=== PATIENT | female | born 1935 | race Caucasian/White ===

== ENCOUNTER 2018-09-22 17:56 | Inpatient (IN) | payer OTHER ==
[~2018-09-22] VITALS: Ht 170.2 cm; Wt 66.8 kg
[2018-09-22 18:44] LABS: Eosinophils # (auto) 0.2 uL; Monocytes # (auto) 0.6 uL; Platelet Count (auto) 175 10^3/uL (140-450)
[2018-09-22 18:46] LABS: Basophils # (auto) 0.1 uL; Basophils % (auto) 1.5 % (0.0-2.0); Eosinophils % (auto) 4.8 % (0.0-7.0); Hematocrit 32.8 % (36.0-46.0); Hemoglobin 10.8 g/dL (12.2-16.2); Lymphocytes # (auto) 0.9 uL; Lymphocytes % (auto) 19.3 % (10.0-50.0); Mean Corpuscular Hemoglobin 34.6 pg (28.0-32.0); Mean Corpuscular Volume 104.8 fL (80.0-100.0); Monocytes % (auto) 12.4 % (0.0-12.0); Red Blood Cells 3.13 10^6/uL (4.0-5.20); Red Cell Distribution Width 19.6 % (11.8-14.3); White Blood Cell 4.9 10^3/uL (4.4-10.8)
[2018-09-22 18:57] LABS: Albumin 3.7 g/dL (3.4-5.0); Calcium 8.7 mg/dL (8.5-10.1); Magnesium 2.2 mg/dL (1.6-2.6); Potassium 3.8 mmol/L (3.5-5.1)
[2018-09-22 19:03] LABS: BUN/Creatinine Ratio 20.2; Bilirubin, Total 2.9 mg/dL (0.2-1.0); Total Protein 6.8 g/dL (6.4-8.2)
[2018-09-22] MEDS ORDERED: SODIUM CHLORIDE 0.9% 1,000 ML IV ONE (19:15)
[2018-09-22 22:28] LABS: Urine Amorphous Crystal FEW /hpf (None Seen); Urine Bacteria FEW /hpf (None Seen); Urine Blood 1+ /uL (Negative); Urine Mucus FEW (None Seen); Urine Specific Gravity 1.015 (1.001-1.035); Urine WBC <1 /hpf (0 - 5)
[2018-09-22] MEDS ORDERED: DOCUSATE SOD 100 MG CAP PO PRN (22:45)
[2018-09-22] MEDS ORDERED: ONDANSETRON HCL 4 MG/2 ML VIAL IV PRN (22:45)
[2018-09-22] MEDS ORDERED: HYDROcodone-ACET 5/325MG TAB PO PRN (22:45)
[2018-09-22] MEDS ORDERED: ACETAMINOPHEN 325 MG TAB PO PRN (22:45)
[2018-09-22] MEDS ORDERED: LACTULOSE 20Gm/30ML SOLN PO ONE (23:15)
[2018-09-22 23:50] VITALS: BP 150/69
--- NOTE | 2018-09-22 23:55 | NUR ---
MS admit from ER MISHA,GUNNER Rivera admitted to tele/MS after SBAR received. Patient oriented to Twila Morris RN primary RN, unit, room, bed, and unit policies regarding patient care and visiting hours. Patient weighed by bedscale and encouraged to call if they need something. All questions and concerns addressed, patient verbalized understanding. Bed is in lowest locked posoition with bed rails up x2 and call light is within reach of the patient. Bed alarm is armed.
--- NOTE | 2018-09-23 01:20 | NUR ---
Wound pictures taken, to place would consult. Addendum: 09/23/18 at 0120 by Twila Morris RN RN Spelling error: Meant Wound consult.
--- NOTE | 2018-09-23 01:39 | NUR ---
Unable to Reconcile medications at this time: Patients family member called to bring medication list today to complete medication reconciliation. Will notify the day nurse.
[2018-09-23 04:30] VITALS: BP 112/57
[2018-09-23 05:52] LABS: Basophils # (auto) 0 uL; Basophils % (auto) 0.6 % (0.0-2.0); Eosinophils # (auto) 0.2 uL; Hemoglobin 8.9 g/dL (12.2-16.2); Lymphocytes # (auto) 1.1 uL; Neutrophils # (auto) 3.1 uL; White Blood Cell 5.2 10^3/uL (4.4-10.8)
[2018-09-23 05:56] LABS: Eosinophils % (auto) 4.2 % (0.0-7.0); Hematocrit 26.8 % (36.0-46.0); Lymphocytes % (auto) 21.5 % (10.0-50.0); Mean Corpuscular Hemoglobin 35.2 pg (28.0-32.0); Mean Corpuscular Hgb Conc. 33.3 g/dL (32.0-36.0); Mean Corpuscular Volume 105.5 fL (80.0-100.0); Monocytes # (auto) 0.8 uL; Monocytes % (auto) 14.7 % (0.0-12.0); Platelet Count (auto) 163 10^3/uL (140-450); Red Blood Cells 2.54 10^6/uL (4.0-5.20)
[2018-09-23 06:21] LABS: BUN/Creatinine Ratio 19.2; Calcium 8.1 mg/dL (8.5-10.1); Potassium 3.4 mmol/L (3.5-5.1)
--- NOTE | 2018-09-23 07:10 | NUR ---
Open Shift Note Received report on patient, asleep in bed showing no signs of distress at this time. Bed in lowest locked position with bed alarm on, side rails up x2 and call light within reach. Will continue to monitor.
[2018-09-23 09:00] VITALS: BP 132/63
[2018-09-23] MEDS: LACTULOSE 20Gm/30ML SOLN PO SCH (10:00)
[2018-09-23] MEDS: FAMOTIDINE 20 MG TAB PO SCH ×2 (11:03→21:39)
--- NOTE | 2018-09-23 12:00 | NUR ---
WOUND CARE NOTE: Wound care consult received from nursing for head laceration with peter. Patient is a 82yo female admitted for generalized weakness. Patient with a history of multiple falls, chronic kidney disease, HTN, hyperlipidemia, and CABG. Reviewed photos with bedside RN, Lashae. Per chart records patient previously fell and was seen at [facility] where she received care for head laceration with peter. Patient fell again and son had patient brought to [facility]. Patient is alert and denies pain. Last Jermaine score is 17. Midline chest scar noted from previous CABG. No other open wounds. RECOMMENDATIONS: Nursing to cleanse head laceration with mild soap and water, pat dry, leave open to air; No further need from wound care team.
[2018-09-23 13:00] VITALS: BP 124/62
[2018-09-23 14:19] LABS: Albumin 3.1 g/dL (3.4-5.0)
[2018-09-23 14:24] LABS: Bilirubin, Direct 1.1 mg/dL (0-0.2); Bilirubin, Total 2.5 mg/dL (0.2-1.0); Total Protein 5.6 g/dL (6.4-8.2)
[2018-09-23 17:12] VITALS: BP 129/51
--- NOTE | 2018-09-23 17:15 | NUR ---
Orellana catheter dc'd Order to discontinue orellana catheter. Orellana dc'd with clean technique following deflation of balloon. Patient tolerated well with no complaints of pain. Continue care.
--- NOTE | 2018-09-23 17:30 | NUR ---
Physical Therapy Physical therapist Shan stated patient would benefit from SNF placement. Dr Wilbert Lambert made aware.
--- NOTE | 2018-09-23 17:45 | NUR ---
Spoke With Case Management from [facility] Spoke with Siri from Case management who stated to fax over patient's information to [facility]. [facility] [phone] Siri [phone]
--- NOTE | 2018-09-23 18:47 | NUR ---
Faxed Information to [facility] Faxed patient's information to [facility].
--- NOTE | 2018-09-23 19:06 | NUR ---
End of Shift Endorsed care and discharge to [facility] nurse. Patient shows no signs of distress at this time.
--- NOTE | 2018-09-23 19:10 | NUR ---
RECEIVED PATIENT LYING IN BED, AWAKE, ALERT, ORIENTED X4. NO S/S OF RESPIRATORY DISTRESS, DENIES SOB AND CHEST PAIN. ORIENTED ON PLAN OF CARE. BED IS LOCKED AND IN LOWEST LEVEL, SIDE RAILS UP X2, BED ALARM ON, CALL LIGHT WITHIN REACH. WILL CONTINUE TO MONITOR
[2018-09-23 22:00] VITALS: BP 120/57
[2018-09-24 05:07] VITALS: BP 130/64
--- NOTE | 2018-09-24 07:29 | NUR ---
PATIENT AWAKE, ALERT, ORIENTED X4. NO S/S OF RESPIRATORY DISTRESS. CARE ENDORSED TO AM SHIFT RN
--- NOTE | 2018-09-24 07:30 | NUR ---
Opening Shift Note Assuming care of patient at this time. Patient is resting in bed, with bed locked and lowered with side rails up x2. Bed alarm is on. Patient denies pain. Patient shows no signs or symptoms of distress or shortness of breath. Instructed patient on the plan of care for today and to call for assistance as needed. Call light within reach. Will continue to round hourly and as needed.
[2018-09-24 09:00] VITALS: BP 120/71
[2018-09-24] MEDS: FAMOTIDINE 20 MG TAB PO SCH (09:22)
[2018-09-24] MEDS: LACTULOSE 20Gm/30ML SOLN PO SCH (09:22)
--- NOTE | 2018-09-24 10:25 | NUR ---
Per Genesis Bryan CM for [facility]. PT accepted at [facility] rm 206 bed [address] Lynne and auth for transport is [id number]. Ss notified of above
--- NOTE | 2018-09-24 11:10 | NUR ---
assessment Patient is a 82 year old female who is alert and oriented. Patients cognitive abilities are intact. Prior to admission patient lived home with her son Shan and functioned independently. Patient informed me she is able to care for her own ADLs. Per patient she will agree to SNF on discharge. Patient informed me she has a fww for home use. Patient informed me her PCP is Dr Trevizo. I informed patient she has a right to speak to a social media developer regarding all care. I informed patient she has a right to participate in any and all discharge planning. Patient is aware of visiting hours on the hospital floor. I informed patient she has a right to privacy. Patient does not have a POA and advanced directive. I have offered patient information on POA and advanced directives. I informed the patient the advantages and benefits of having an Advanced Directive. Patient verbalized understanding and agreed to discharge plan. Per consult SNF placement and transfer to SNF. MD order has been sent to [facility], [facility], and [facility]. Per Arden at [facility] patient is accepted to room [facility] bed [address] Lynne is the accepting MD. Nobody will accept [facility] auth for transport. Patient informed me her son can transport to [facility]. Patient agrees to discharge plan to SNF. Addendum: 09/24/18 at 1122 by Loly Pacheco Amended: Links added.
--- NOTE | 2018-09-24 11:48 | NUR ---
Call to Patient's Son Called patient's son four times. The line is busy. Will verify number with patient and call back later.
[2018-09-24 12:04] VITALS: BP 120/71
[2018-09-24 13:00] VITALS: BP 131/56
--- NOTE | 2018-09-24 14:05 | NUR ---
Re: Wound Photos Discharge wound photos taken at this time.
--- NOTE | 2018-09-24 14:07 | NUR ---
Discharge Discharge instructions given as ordered. All questions and concerns addressed. Patient verbalized understanding. IV removed with catheter intact, pressure dressing applied. Medication reconciliation form completed and copy given to patient. Report given to Ana, at [facility]. Patient transported by son with all personal belongings. No distress noted at time of departure.
== END 2018-09-24 14:10 | DRG 103 ==
LOC: ER 17:56 → EDBD 17:56 → OVERFLOW 22:51 → WEST WING 23:35
PROVIDERS: ADMIT Nurse Practitioner; ATTEND Internal Medicine
DX: F07.81 Postconcussional syndrome (principal); E72.20 Disorder of urea cycle metabolism, unspecified; R53.81 Other malaise; E78.5 Hyperlipidemia, unspecified; F02.80 Dementia in other diseases classified elsewhere, unspecified severity, without behavioral disturbance, psychotic disturbance, mood disturbance, and anxiety; G30.9 Alzheimer's disease, unspecified; I12.9 Hypertensive chronic kidney disease with stage 1 through stage 4 chronic kidney disease, or unspecified chronic kidney disease; N18.9 Chronic kidney disease, unspecified; F32.9 Major depressive disorder, single episode, unspecified; G89.29 Other chronic pain; K76.0 Fatty (change of) liver, not elsewhere classified; Z91.81 History of falling; Z95.1 Presence of aortocoronary bypass graft
CPT/HCPCS: 36415; 36600; 51702; 70450; 71045; 76705; 80048; 80053; 80076; 81001; 82140; 82550; 82805; 83735; 83880; 84443; 84484; 85025; 86141; 87081; 93005; 94761; 96360; 96361; 97163; G0378